=== PATIENT | female | born 1985 | race Caucasian/White ===

== ENCOUNTER 2021-09-26 17:41 | Inpatient (IN) ==
[2021-09-26] MEDS: BETAMETH SODIUM PHOS/ACETATE 30 MG/5 ML VIAL IM SCH (18:02)
[2021-09-27] MEDS ORDERED: ACETAMINOPHEN 500 MG TABLET PO SCH (05:00)
[2021-09-27] MEDS: BETAMETH SODIUM PHOS/ACETATE 30 MG/5 ML VIAL IM SCH (06:11)
[2021-09-27] MEDS ORDERED: NIFEdipine 10 MG CAPSULE PO ONE (06:36)
[2021-09-27 09:44] LABS: Basophils % 0.1 % (0.0-0.8); Hematocrit 32.4 VOL% (35.7-47.0); Hemoglobin 10.5 GM/DL (12.0-16.0); Immature Granulocytes % 1.4 %; Immature Granulocytes Absolute 0.21 #; Lymphocytes # 1.4 10*3/uL (1.4-4.0); Lymphocytes % 9.1 % (21.3-54.2); Mean Corpuscular HGB Conc 32.4 GM/DL (32-36); Mean Corpuscular Volume 87.1 FL (87-102); Mean Platelet Volume 13.2 FL (9.6-12.0); Monocytes # 0.5 10*3/uL (0.11-0.8); Monocytes % 3.4 % (1.7-12.7); Platelet Count 134 T/CUMM (130-400); Red Blood Count 3.72 MC/CUMM (3.8-5.5); Red Cell Distribution Width 13.4 % (9.3-17.3); White Blood Count 15.5 T/CUMM (4-12)
[2021-09-27] MEDS ORDERED: CARBOPROST TROMETHAMINE 250 MCG/ML AMP IM PRN ×2 (10:38→10:51)
[2021-09-27] MEDS ORDERED: TRANEXAMIC ACID 1,000 MG in SODIUM CHLORIDE 0.9% 100 ML IV PRN ×2 (10:38→10:51)
[2021-09-27] MEDS ORDERED: METHYLERGONOVINE 0.2 MG/1 ML AMP IM PRN ×2 (10:38→10:51)
[2021-09-27] MEDS ORDERED: FAMOTIDINE 20 MG/2 ML VIAL IV ONE (10:38)
[2021-09-27] MEDS ORDERED: OXYTOCIN/LR 20 UNIT/1,000 ML BAG IV ONE ×4 (10:38→12:31)
[2021-09-27] MEDS ORDERED: CITRIC ACID/SODIUM CITRATE 30 ML UDCUP PO ONE (10:38)
[2021-09-27] MEDS ORDERED: miSOPROStoL 200 MCG TABLET RECTAL PRN ×2 (10:38→10:51)
[2021-09-27] MEDS ORDERED: ceFAZolin 3,000 MG in SYRINGE 1 EACH IV ONE (10:38)
[2021-09-27] MEDS ORDERED: ONDANSETRON 4 MG/2 ML VIAL ONE ×2 (10:42)
[2021-09-27] MEDS ORDERED: PHENYLEPHRINE 1 MG/10 ML SYRINGE IV ONE (10:42)
[2021-09-27] MEDS ORDERED: buprenorphine HCL 0.3 MG/ML VIAL ONE (10:42)
[2021-09-27] MEDS ORDERED: BUPIVACAINE SPINAL 0.75% 2 ML AMP SPINAL ONE (10:42)
[2021-09-27] MEDS ORDERED: ACETAMINOPHEN INJ 1,000 MG/100 ML VIAL IV ONE (10:44)
[2021-09-27] MEDS ORDERED: KETOROLAC 30 MG/1 ML VIAL ONE (10:44)
[2021-09-27] MEDS ORDERED: ONDANSETRON 4 MG/2 ML VIAL IV PRN ×2 (10:51→12:31)
[2021-09-27] MEDS ORDERED: CARBOPROST TROMETHAMINE 250 MCG/ML AMP IM ONE (10:57)
[2021-09-27] MEDS ORDERED: miSOPROStoL 200 MCG TABLET ONE (10:57)
[2021-09-27] MEDS ORDERED: METHYLERGONOVINE 0.2 MG/1 ML AMP ONE (10:57)
[2021-09-27] MEDS ORDERED: SODIUM CHLORIDE 0.9% 0 ML IV ONE (10:57)
[2021-09-27] MEDS ORDERED: TRANEXAMIC ACID 1,000 MG/10 ML VIAL ONE (10:57)
[2021-09-27] MEDS ORDERED: LACTATED RINGERS 1,000 ML IV SCH ×2 (11:00→13:00)
[2021-09-27 11:54] LABS: Hypochromia 1+; Microcytosis 1+; Ovalocytes Slight; Platelet Estimate Adequate; Polychromasia Slight
[2021-09-27 11:56] LABS: Cord Arterial Blood HCO3 21.4 MMOL/L
[2021-09-27 11:59] LABS: Cord Venous Blood HCO3 22.9 MMOL/L; Cord Venous Blood PCO2 37.5 MMHG
[2021-09-27 12:19] LABS: Bacteria,Urine Occasional /HPF (Few); Mucus,Urine Occasional /LPF (Occasional); RBC,Urine <1 /HPF (0-4); Squamous Epithelial Cell,Urine Occasional /HPF (0-10)
[2021-09-27 12:22] LABS: Bilirubin,Urine Negative (Negative); Glucose,Urine (UA) Negative (Negative); Ketones,Urine 80 mg/dL (Negative); Nitrite,Urine Negative (Negative); Protein,Urine Negative (Negative); Urine Appearance Clear (Clear); Urine Color Yellow (Yellow)
[2021-09-27 12:23] LABS: Blood, Urine Negative (Negative); Urine Urobilinogen 0.2 eU/dL (<2.0)
[2021-09-27] MEDS ORDERED: SIMETHICONE CHEW 80 MG TABLET PO PRN (12:31)
[2021-09-27] MEDS ORDERED: RHO(D) IMMUNE GLOBULIN 300 MCG SYRINGE IM ONE (12:31)
[2021-09-27] MEDS ORDERED: MAGNESIUM HYDROXIDE SUSP 30 ML UDCUP PO PRN (12:31)
[2021-09-27] MEDS ORDERED: ACETAMINOPHEN 325 MG TABLET PO PRN (12:31)
[2021-09-27] MEDS ORDERED: HYDROmorphone 1 MG/1 ML SYRINGE IV ONE (14:30)
[2021-09-27] MEDS: KETOROLAC 30 MG/1 ML VIAL IM SCH (18:24)
[2021-09-27] MEDS: ACETAMINOPHEN 500 MG TABLET PO SCH (18:24)
[2021-09-28] MEDS: ACETAMINOPHEN 500 MG TABLET PO SCH (02:10)
[2021-09-28] MEDS: KETOROLAC 30 MG/1 ML VIAL IM SCH (02:10)
[2021-09-28] MEDS: DOCUSATE SODIUM 100 MG CAPSULE PO SCH ×3 (02:48→20:31)
[2021-09-28 05:13] LABS: Basophils % 0.1 % (0.0-0.8); Hematocrit 26.1 VOL% (35.7-47.0); Immature Granulocytes % 1.9 %; Immature Granulocytes Absolute 0.38 #; Lymphocytes # 1.8 10*3/uL (1.4-4.0); Lymphocytes % 8.8 % (21.3-54.2); Mean Corpuscular HGB Conc 32.6 GM/DL (32-36); Mean Corpuscular Volume 87.3 FL (87-102); Mean Platelet Volume 14.2 FL (9.6-12.0); Monocytes # 1.7 10*3/uL (0.11-0.8); Monocytes % 8.3 % (1.7-12.7); Neutrophils % 80.9 % (38.7-73.9); Platelet Count 146 T/CUMM (130-400); Red Blood Count 2.99 MC/CUMM (3.8-5.5); Red Cell Distribution Width 13.7 % (9.3-17.3)
[2021-09-28 05:14] LABS: Hemoglobin 8.5 GM/DL (12.0-16.0); White Blood Count 20.2 T/CUMM (4-12)
[2021-09-28 05:37] LABS: Lymphocytes 4 % (20-55); Platelet Estimate Normal
[2021-09-28 05:38] LABS: Hypochromia Slight; Total Cells Counted 100
[2021-09-28] MEDS ORDERED: KETOROLAC 30 MG/1 ML VIAL IV ONE (06:30)
[2021-09-28] MEDS ORDERED: KETOROLAC 30 MG/1 ML VIAL IM SCH (08:30)
[2021-09-28] MEDS: MULTIVITAMIN (PRENATAL) TABLET PO SCH (09:30)
[2021-09-28] MEDS: IRON (CARBONYL)/VIT C/B12/FA TABLET PO SCH (09:30)
[2021-09-28] MEDS ORDERED: RHO(D) IMMUNE GLOBULIN 300 MCG SYRINGE IM ONE (15:10)
[2021-09-28] MEDS: oxyCODONE/ACETAMINOPHEN 5-325 MG TABLET PO PRN (18:48)
[2021-09-28] MEDS: IBUPROFEN 800 MG TABLET PO PRN (20:35)
[2021-09-29] MEDS: oxyCODONE/ACETAMINOPHEN 5-325 MG TABLET PO PRN ×3 (00:15→11:00)
[2021-09-29] MEDS: IBUPROFEN 800 MG TABLET PO PRN (04:52)
[2021-09-29 07:57] VITALS: BP 90/51
[2021-09-29] MEDS: DOCUSATE SODIUM 100 MG CAPSULE PO SCH (09:35)
[2021-09-29] MEDS: MULTIVITAMIN (PRENATAL) TABLET PO SCH (09:35)
[2021-09-29] MEDS: IRON (CARBONYL)/VIT C/B12/FA TABLET PO SCH (09:36)
== END 2021-09-29 13:29 | disposition home or self-care (01) | DRG 788 ==
LOC: N.LDOUT 17:41 → N.LD 17:44 → N.OB 09-27 22:46
PROVIDERS: ADMIT Obstetrics & Gynecology; ATTEND Obstetrics & Gynecology
PROC: LDCSECT (ICD-10-PCS; 2021-09-27 11:15)